=== PATIENT | female | born 1935 | race Caucasian/White ===

== ENCOUNTER 2020-04-01 07:03 | Emergency (ER) | payer MEDICARE, OTHER ==
[2020-04-01 07:49] LABS: #Lymphocytes 2.5 thou/uL (1.20-3.40); #Monocytes 0.8 thou/uL (0.11-0.59); %Basophils 0.5 % (0.0-1.0); %Eosinophils 0.4 % (0.0-10.0); %Lymphocytes 26.7 % (21.0-51.0); %Monocytes 8.9 % (0.0-10.0); %Neutrophils 63.6 % (42.0-75.0); Hemoglobin 15.9 g/dL (12.0-16.0); Mean Corpuscular HGB CONC 33.2 g/dL (32.0-36.0); Mean Corpuscular Hemoglobin 31.2 pg (27.0-31.0); Mean Corpuscular Volume 93.9 fL (78.0-98.0); Mean Platelet Volume 7.4 fL (7.4-10.4); Platelet Count 275 thou/uL (130-400); Red Blood Cell (RBC) Count 5.12 mill/uL (4.20-5.40); White Blood Cell (WBC) Count 9.5 thou/uL (4.8-10.8)
[2020-04-01 08:11] LABS: Bilirubin 1+ (Negative); Blood, Urine 1+ (Negative); Clarity Turbid (Clear); Glucose, Urine (Dipstick) Normal (Negative); Ketone, Urine Negative (Negative); Leukocyte 500 Leu/uL (Negative); Nitrite 1+ (Negative); Protein, Urine (Dipstick) Negative (Neg-Trace); pH, Urine 7.5 (5.0-9.0)
[2020-04-01 08:16] LABS: ALT (SGPT) 22 U/L (8-55); AST (SGOT) 22 U/L (5-34); Albumin 4.8 g/dL (3.4-4.8); Alkaline Phosphatase 86 U/L (40-110); Anion Gap 16 mmol/L (10-20); BUN (Urea Nitrogen) 11 mg/dL (9.8-20.1); Bilirubin, Total 0.8 mg/dL (0.2-1.2); Calc. Creatinine Clearance 0 mL/min (70-130); Calcium 10.3 mg/dL (7.8-10.44); Carbon Dioxide 26 mmol/L (23-31); Chloride 102 mmol/L (98-107); Estimated GFR-MDRD 60; Globulin 3.1 g/dL (2.4-3.5); Glucose 114 mg/dL (83-110); Potassium 3.9 mmol/L (3.5-5.1); Protein, Total 7.9 g/dL (6.0-8.3); Sodium 140 mmol/L (136-145)
[2020-04-01 08:17] LABS: Bacteria/HPF 1+ HPF (None Seen)
[2020-04-01 08:28] LABS: Yeast-Hyphae 1+ HPF (None Seen)
[2020-04-01] MEDS ORDERED: cefTRIAXone\\ROCEPHIN 1 GM VIAL ONE (08:54)
[2020-04-01] MEDS ORDERED: Fluconazole 100 MG TAB PO SCH (09:30)
== END 2020-04-01 10:08 | disposition home or self-care (01) ==
LOC: ERS 07:03
DX: N39.0 Urinary tract infection, site not specified (principal); I10 Essential (primary) hypertension; E78.5 Hyperlipidemia, unspecified; K21.9 Gastro-esophageal reflux disease without esophagitis; I70.90 Unspecified atherosclerosis; Z79.82 Long term (current) use of aspirin; Z79.899 Other long term (current) drug therapy
CPT/HCPCS: 80053; 81003; 81015; 85025; 87086; 96365; J0696

== ENCOUNTER 2020-04-09 07:47 | Emergency (ER) | payer MEDICARE, OTHER ==
[2020-04-09 08:36] LABS: Bilirubin Negative (Negative); Blood, Urine Trace (Negative); Clarity Turbid (Clear); Glucose, Urine (Dipstick) Normal (Negative); Ketone, Urine Negative (Negative); Leukocyte 500 Leu/uL (Negative); Nitrite Negative (Negative); Protein, Urine (Dipstick) Negative (Neg-Trace); Specific Gravity, Urine 1.003 (1.002-1.036); Urobilinogen Normal mg/dL (Less than 2); pH, Urine 7.5 (5.0-9.0)
[2020-04-09 08:37] LABS: Bacteria/HPF 1+ HPF (None Seen)
[2020-04-09 08:54] LABS: #Basophils 0.1 thou/uL (0.0-0.2); #Lymphocytes 2.1 thou/uL (1.20-3.40); #Monocytes 0.8 thou/uL (0.11-0.59); %Basophils 0.7 % (0.0-1.0); %Eosinophils 0.4 % (0.0-10.0); %Lymphocytes 26.5 % (21.0-51.0); %Monocytes 9.6 % (0.0-10.0); %Neutrophils 62.8 % (42.0-75.0); Hemoglobin 14.5 g/dL (12.0-16.0); Mean Corpuscular HGB CONC 33.6 g/dL (32.0-36.0); Mean Corpuscular Hemoglobin 31.2 pg (27.0-31.0); Mean Corpuscular Volume 92.9 fL (78.0-98.0); Platelet Count 273 thou/uL (130-400); RBC Distribution Width 11.8 % (11.5-14.5); Red Blood Cell (RBC) Count 4.64 mill/uL (4.20-5.40); White Blood Cell (WBC) Count 7.9 thou/uL (4.8-10.8)
[2020-04-09] MEDS ORDERED: Ondansetron PF 4 MG/2 ML Vial ONE (08:59)
[2020-04-09 09:25] LABS: ALT (SGPT) 18 U/L (8-55); AST (SGOT) 16 U/L (5-34); Albumin 4.3 g/dL (3.4-4.8); Alkaline Phosphatase 69 U/L (40-110); Anion Gap 13 mmol/L (10-20); BUN (Urea Nitrogen) 4 mg/dL (9.8-20.1); Bilirubin, Total 0.9 mg/dL (0.2-1.2); Calc. Creatinine Clearance 0 mL/min (70-130); Calcium 9.3 mg/dL (7.8-10.44); Carbon Dioxide 26 mmol/L (23-31); Chloride 103 mmol/L (98-107); Estimated GFR-MDRD 71; Globulin 2.5 g/dL (2.4-3.5); Glucose 105 mg/dL (83-110); Potassium 3.8 mmol/L (3.5-5.1); Protein, Total 6.8 g/dL (6.0-8.3); Sodium 138 mmol/L (136-145)
--- NOTE | 2020-04-09 11:49 | CT ---
CT ABDOMEN WITH CONTRAST CT PELVIS WITH CONTRAST: DATE: 04/09/2020 HISTORY: 84-year-old female with abdominal pain COMPARISON: None TECHNIQUE: IV injection of iodinated contrast media: administered. Oral contrast media:Not administered FINDINGS: There are a few tiny appendicoliths in the proximal portion of a fluid-filled appendiceal lumen. Ther e is no periappendiceal fat stranding and the rest of the appendix is thin and normal. Likewise, there are 2 tiny gallstones a few millimeters in size each at the fundus of the gallbladder . Mild gallbladder distention, but no mural thickening or pericholecystic edema. Low-attenuation lesion in the left lobe of liver straddling the falciform ligament. This is nonspecif ic, but probably represents focal fatty infiltration. The rest of the liver is normal. Small sliding hiatal hernia. Heavy atherosclerotic calcification, ectasia, and tortuosity of infrarenal abdominal aorta without an eurysm. This also involves common iliac arteries. Large air-fluid level with calcific density between the second stage of the duodenum and the head of the pancreas. 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 A high density material could represent calcification or ingested material. Mild dilation of proximal aspect of pancreatic duct. Moderate dilation of common bile duct and common hepatic duct. Little or no intrahepatic biliary ductal dilation. Adrenals, spleen, and urinary bladder demonstrate no major pathology. There is a pessary in the lower pelvis. Multiple air-fluid levels throughout the lumen of the colon. No colonic diverticulitis. No ascites, small bowel dilation, or pneumoperitoneum. Compression screw and intramedullary nail in right proximal femur. 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 No hydronephrosis or pyelonephritis. Subsegmental atelectasis at posterior bases of bilateral lower lobes. IMPRESSION: 1) cholelithiasis without evidence of acute cholecystitis. 2) extrahepatic biliary ductal dilation and mild proximal pancreatic ductal dilation. Exact etiology uncertain. Possibilities include low-grade partial obstruction due to occult ampullary neoplasm versus partial obstruction due to moderately large duodenal diverticulum (which has calcific density material within it of uncertain etiology). 3) evidence for diarrhea 4) severe lumbar spondylosis 5) pessary in the pelvis
== END 2020-04-09 13:30 | disposition home or self-care (01) ==
LOC: ERS 07:47
DX: R19.7 Diarrhea, unspecified (principal); R93.5 Abnormal findings on diagnostic imaging of other abdominal regions, including retroperitoneum; I70.90 Unspecified atherosclerosis; K21.9 Gastro-esophageal reflux disease without esophagitis; E78.5 Hyperlipidemia, unspecified; Z79.82 Long term (current) use of aspirin; Z79.899 Other long term (current) drug therapy
CPT/HCPCS: 36415; 74177; 80053; 81003; 81015; 85025; 87045; 87046; 87086; 87324; 87427; 87449; J2405

== ENCOUNTER 2022-05-02 05:46 | Emergency (ER) | payer MEDICARE, OTHER ==
[2022-05-02] MEDS ORDERED: Mag-Al 1200 mg/1200 mg/30 ML UDCUP ONE (06:04)
[2022-05-02] MEDS ORDERED: Lidocaine Viscous Sol 2% 15 ml UD Cup ONE (06:04)
[2022-05-02] MEDS ORDERED: Ondansetron ODT 8 MG TAB ONE (06:37)
== END 2022-05-02 09:04 | disposition home or self-care (01) ==
LOC: ERS 05:46
DX: M62.81 Muscle weakness (generalized) (principal); Z20.822 Contact with and (suspected) exposure to COVID-19
CPT/HCPCS: 99284; Q0162